=== PATIENT | male | born 1965 | race Two or more races ===

== ENCOUNTER 2019-02-03 05:50 | Inpatient (IN) | payer OTHER ==
[2019-02-03] VITALS (9 sets, daily range): BP systolic 110–149; BP diastolic 66–91
[~2019-02-03] VITALS: Ht 175.3 cm; Wt 74.8 kg
[2019-02-03] MEDS ORDERED: BENAZEPRIL HCL20 MG ORAL (06:19)
[2019-02-03] MEDS ORDERED: HYDROCODON-ACE1 EA15 ORAL (06:19)
--- NOTE | 2019-02-03 08:04 | NUR ---
LATEX FREE ENVIRONMENT MAINTAINED
--- NOTE | 2019-02-03 08:42 | Diagnostic Imaging Report ---
Indication: Cough Technique: One view of the chest Comparison: none Findings: Inspiration is suboptimal. There is some atelectasis at the left lung base. Lungs and pleural spaces are otherwise clear. The heart size is upper limits of normal. Impression: No acute process
--- NOTE | 2019-02-03 08:49 | Cardiology Progress Note ---
Assessment/Plan Assessment/Plan thoracic and lumbar strain lumbar radiculopathy htn remote history ot tobacco use ekg neg cbc ., cmp , coags ok urine ok cxr done pending full report to my review i did not see any sig abn may be atelectasis left await final interpretation no prior cardiac hs or dm no recent cardaic symptoms relatively low risk procedure no contraindication felt to be acceptable and low risk for perioperative cardiac morbidity [id number] Objective Last 24 Hour Vital Signs Date Time Temp Pulse Resp B/P (MAP) Pulse Ox O2 Delivery O2 Flow Rate FiO2 02/03/19 07:30 97.6 73 20 149/89 (109) 97 02/03/19 07:24 Room Air Chritsofer Rubio MD Feb 03, 2019 08:48
[2019-02-03] MEDS ORDERED: fentaNYL 100 mcg/2 mL IV ONE (09:48)
[2019-02-03] MEDS ORDERED: Midazolam 2mg/2ml Inj ONE (09:48)
[2019-02-03] MEDS ORDERED: Lidocaine 1% MPF 10mg/ml 5ml ONE (09:57)
[2019-02-03] MEDS ORDERED: Zemuron 50mg/5ml Inj IV ONE (10:07)
[2019-02-03] MEDS ORDERED: Morphine Sulfate 2mg/ml Inj(IV/IM USE ONLY) IM PRN (10:15)
[2019-02-03] MEDS ORDERED: Milk of Magnesia 30ml Ud ORAL PRN ×2 (10:15→13:30)
[2019-02-03] MEDS ORDERED: Acetaminophen (Non formulary) 100 ML IV ONE (10:15)
[2019-02-03] MEDS ORDERED: Vancomycin 1gm vial IVPB ONE (10:41)
[2019-02-03] MEDS ORDERED: Gelfoam Size TOPIC ONE (10:42)
[2019-02-03] MEDS ORDERED: Thrombin 5000 units TOPIC ONE ×2 (10:42→12:18)
[2019-02-03] MEDS ORDERED: Bacitracin 50000 Units Vial ONE (10:42)
[2019-02-03] MEDS ORDERED: Bupivacaine w/Epi 0.5% 30ml Vial INJ ONE (10:42)
--- NOTE | 2019-02-03 11:20 | Pre-Procedure Note/Attestation ---
Pre-Procedure Note/Attestation Complete Prior to Procedure Procedure Narrative: L34 L discectomy Indications for Procedure Pre-Operative Diagnosis: L34 HNP Attestation I attest that I discussed the nature of the procedure; its benefits; risks and complications; and alternatives (and the risks and benefits of such alternatives ), prior to the procedure, with the patient (or the patient's legal wire rope sales representative). I attest that, if there was a reasonable possibility of needing a blood transfusion, the patient (or the patient's legal wire rope sales representative) was given the [facility] standardized written summary, pursuant to the [place] Blood Safety Act ([place] Health and Safety Code # 1645, as amended). I attest that I re-evaluated the patient just prior to the surgery and that there has been no change in the patient's H&P, except as documented below: Aureliano Roy MD Feb 03, 2019 11:20
[2019-02-03] MEDS ORDERED: NS Irrig 1000ml ONE (12:03)
[2019-02-03] MEDS ORDERED: LR 1000ml ONE (12:03)
[2019-02-03] MEDS ORDERED: Sterile Water Irrig 1000ml IRRIG ONE (12:03)
[2019-02-03] MEDS ORDERED: NS Irrig 1000ml IRRIG ONE ×2 (12:03→12:48)
[2019-02-03] MEDS ORDERED: Propofol 1,000mg/ 100ml btl IV ONE (12:30)
--- NOTE | 2019-02-03 12:53 | Anethesia Preoperative Eval ---
Anesthesia Pre-op PMH/ROS General Date of Evaluation: Feb 03, 2019 Time of Evaluation: 11:40 Anesthesiologist: Marine ASA Score: ASA 2 Mallampati Score Class I : Soft palate, uvula, fauces, pillars visible Class II: Soft palate, uvula, fauces visible Class III: Soft palate, base of uvula visible Class IV: Only hard plate visible Mallampati Classification: Class II Surgeon: Manuela Diagnosis: Lumbar radculopathy Surgical Procedure: L3-L4 discectomy Anesthesia History: none Social History: smoking - h/o Family History: no anesthesia problems Allergies: Coded Allergies: Barley (Verified Allergy, Severe, ICTHING, HIVES, 02/03/19) "CANT BREATH" LATEX (Verified Allergy, Severe, 02/03/19) ITCHING ONION (Verified Allergy, Severe, ANAPHYLACTIC SHOCK, 02/03/19) LACTOSE (Verified Adverse Reaction, Severe, 02/03/19) BLOATING,DIARRHEA,ABD CRAMPS Patient NPO?: Yes NPO Date: Feb 02, 2019 NPO Time: 2330 Past Medical History Cardiovascular: Reports: HTN; Denies: CAD, PR, valve dz, arrhythmia, other Pulmonary: Denies: asthma, COPD, IRMA, other Gastrointestinal/Genitourinary: Reports: GERD; Denies: CRI, ESRD, other Neurologic/Psychiatric: Reports: other - chronic pain; Denies: dementia, CVA, depression/anxiety, TIA Endocrine: Reports: hypothyroidism; Denies: DM, steroids, other HEENT: Denies: cataract (L), cataract (R), glaucoma, TRIBAL (L), TRIBAL (R), other Hematology/Immune: Denies: anemia, DVT, bleeding disorder, other Musculoskeletal/Integumentary: Denies: OA, RA, DJD, DDD, edema, other PMH Narrative: as above PSxH Narrative: orchiopexy Anesthesia Pre-op Phys. Exam Physician Exam Last Vital Signs Date Time Temp Pulse Resp B/P (MAP) Pulse Ox O2 Delivery O2 Flow Rate FiO2 02/03/19 07:30 97.6 73 20 149/89 (109) 97 02/03/19 07:24 Room Air Constitutional: NAD Neurologic: CN 2-12 intact Cardiovascular: RRR, no M/R/G Respiratory: CTA Gastrointestinal: S/NT/ND Airway Exam Mallampati Score: Class II MO: full Neck: flexible ROM: full Teeth: intact Dentures: no upper, no lower Anesthesia Pre-op A/P Labs see chart Studies Pre-op Studies: EKG - NSR Risk Assessment & Plan Assessment: ASA 2 Plan: GA with ETT prone position neuromonitoring Status Change Before Surgery: No Pre-Antibiotics Drug: Ancef 2gr. Given Within 1 Hr of Incision: Yes Time Given: 12:28 Ben Hawthorne MD Feb 03, 2019 12:53
[2019-02-03] MEDS ORDERED: Sodium Chloride 10ml vial INJ ONE (12:54)
[2019-02-03] MEDS ORDERED: Glycopyrrolate 0.2mg/ml 1ml Vial ONE (12:54)
[2019-02-03] MEDS ORDERED: Metoprolol 5mg/5ml Inj ONE (12:54)
[2019-02-03] MEDS ORDERED: Ketorolac 30mg Inj ONE (12:54)
[2019-02-03] MEDS ORDERED: Morphine Sulfate 10mg/ml Inj ONE (12:54)
[2019-02-03] MEDS ORDERED: Metoclopramide 10mg/2ml Inj IVP PRN (13:30)
--- NOTE | 2019-02-03 13:32 | Brief Operative Note ---
Immediate Post Operative Note Operative Note Pre-op Diagnosis: L34 HNP Procedure: L34 L discectomy Post-op Diagnosis: same as pre-op Findings: consistent w/pre-op dx studies Surgeon: lan Gear Lapping Machine Operator: azar ortega Anesthesiologist: june Anesthesia: general Specimen: none Complications: none Condition: stable Fluids: 1L Estimated Blood Loss: minimal - 50 Drains: none Implant(s) used?: No Aureliano Roy MD Feb 03, 2019 13:32
--- NOTE | 2019-02-03 13:45 | Consultation ---
DATE OF CONSULTATION: 02/03/2019 CARDIOLOGY CONSULTATION CONSULTING PHYSICIAN: Christofer Rubio M.D. REFERRING PHYSICIAN: Aureliano Roy M.D. REASON FOR REFERRAL: Preoperative consultation. HISTORY OF PRESENT ILLNESS: This is a 53-year-old gentleman, who has had work-related injury, end of May,. At that time, he was referred to a chiropractor adjustment before, but apparently very painful, eventually physical therapy. Pain improved a bit but back, eventually he saw his primary care physician and was referred to a spine surgeon. An MRI was performed and that showed significant abnormalities according to the patient and the patient was referred back to worker's compensation insurance physician and eventually was referred for spine surgery and he will be undergoing that sinus surgery today. He is being seen preoperatively for evaluation. The patient has no cardiac history whatsoever, is not a diabetic. He is active to a certain degree although at times more, at times less depending on degree of pain. He is able to climb one flight of stairs very slowly having to hold on to because of back pain, but in November he was able to walk around and he did than he used to with his activities that he is capable of doing. He is not having any pain, pressure, tightness, heaviness in his chest. There is no PND. There is no orthopnea. He uses one pillow. There is no dizziness or lightheadedness on standing. PAST MEDICAL HISTORY: Positive for history of high blood pressure. He has some mild hyperlipidemia as well. No history of heart attack. No cancer, stroke, hepatitis, tuberculosis, asthma, emphysema. No ulcers. No kidney problems except for a "simple cyst." No liver problems. He does have multiple nodules in his thyroid, this biopsy was negative, anemia, arthritis, HIV, AIDS, blood clots, or bleeding disorders or any other major medical problems. PAST SURGICAL HISTORY: At the age of 10, he underwent surgery for undescended testicle. MEDICATIONS: Benazepril 20 mg daily. ALLERGIES: He is not allergic to any medications. SOCIAL HISTORY: He quit smoking 20 years ago. No alcohol. No drugs. REVIEW OF SYSTEMS: GASTROINTESTINAL: He has had problems with nausea that he blames on pain. He also has intermittent diarrhea related to lactose intolerance. Otherwise, no black or tarry stools. GENITOURINARY: He has multiple nocturic episodes. He has had frequency of urination and apparently he has had some workup and states that apparently was negative according to himself. CONSTITUTIONAL: Negative. NEUROLOGIC: No numbness or weakness in his legs worse on the left leg than the right leg. No other issues. PHYSICAL EXAMINATION: GENERAL: Shows to be a middle-aged gentleman. VITAL SIGNS: His blood pressure is 141/89 with heart rate of 72, respirations of 20, 97% saturation, and temperature 97.6. NECK: Supple. No jugular venous distention. No abdominojugular reflux noted. LUNGS: Clear to auscultation and percussion. CARDIAC: S1 is normal. S2 is normal. Regular rate and rhythm. There is no heaves, no lifts, no gallops, no rubs are noted. ABDOMEN: Soft. I am not able to palpate any of the internal . There is no masses that I can palpate. EXTREMITIES: There is no edema. He has excellent pulses in the radials and dorsalis pedis. LABORATORY AND DIAGNOSTIC DATA: Laboratory values and electrocardiogram showed normal sinus rhythm, normal QRS axis, no ST or T-wave abnormalities. A chest x-ray has just been performed, not yet read by the radiologist. No significant abnormalities were noted. His white count 6.4, hemoglobin 14.4, and platelet count of 339. Blood sugar was 99, sodium 142, potassium 4.5, chloride 98, bicarbonate 27, BUN of 13, creatinine 0.8. Urinalysis is fairly unremarkable. Nitrites negative. INR 1, PTT of 27. ASSESSMENT AND PLAN: 1. Thoracic spine strain. 2. Lumbar spine strain with radiculopathy. 3. History of hypertension. 4. Prior history of tobacco use disorder, quit 20 years earlier. PLAN: Dr. Roy, this patient was seen in cardiac consultation. The patient has no signs, symptoms of coronary syndrome. Recently no signs, symptoms of congestive heart failure. No abnormalities noted on the electrocardiogram. Laboratories are appeared to be satisfactory. The patient has been active, has been able to walk. He has not experienced any chest pain with the surgery, relatively low risk surgery, and is being contemplated at the present time. I see no contraindications for his proposed surgery is felt to be acceptable risk to undergo this lumbar spine surgery. Christofer Rubio M.D. DR: EUSEBIO JOB#: [id number] CC:
[2019-02-03] MEDS ORDERED: Meperidine 50mg/ml Inj(FOR RIGORS ONLY) IV PRN (14:00)
[2019-02-03] MEDS ORDERED: Ketorolac 30mg Inj IV PRN (14:00)
[2019-02-03] MEDS ORDERED: DiphenhydrAMINE 50mg/ml Inj IVP PRN (14:00)
--- NOTE | 2019-02-03 14:06 | Immediate Post-Op Evaluation ---
Immediate Post-Op Evalulation Immediate Post-Op Evalulation Procedure: L3-L4 discectomy with decompression Date of Evaluation: Feb 03, 2019 Time of Evaluation: 14:05 IV Fluids: 1200 Blood Products: none Estimated Blood Loss: 50 Urinary Output: none Blood Pressure Systolic: 116 Blood Pressure Diastolic: 57 Pulse Rate: 82 Respiratory Rate: 20 O2 Sat by Pulse Oximetry: 99 Temperature (Fahrenheit): 97.4 Pain Score (1-10): 2 Nausea: No Vomiting: No Complications none Patient Status: reacts, patent, extubated, none Hydration Status: adequate Ben Hawthorne MD Feb 03, 2019 14:06
--- NOTE | 2019-02-03 15:50 | NUR ---
NURSE NOTES: Pt received from surgery awake scratching his eyes. ER nurse informed pt that eye ointment was placed in eyes due to position of surgery. Pt expressed his allergies. Nuero check rendered , able to follow commands , able to place finger onto nose, and follow writers finger without moving head. Bandage is clean and intact . Ice pack on back. Has sensation to lower extremities , complete resistance. 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 Breathing by nasal canula 3 liters Made aware of diet order, call light is in reach.
[2019-02-03] MEDS ORDERED: Chloraseptic Spray 20mL Bottle ORAL PRN (16:00)
--- NOTE | 2019-02-03 16:00 | NUR ---
NURSE NOTES: Pt assessed by play writer and charge nurse yet told no one is listening to him. Pt made aware of possible sensations related to surgery and sensations that would alert us to call surgeon. Verbalized understanding
[2019-02-03] MEDS: HYDROmorphone 1mg/ml Carpuject SUBQ PRN ×2 (16:01→20:47)
--- NOTE | 2019-02-03 16:26 | Diagnostic Imaging Report ---
INDICATION: Pain, intraoperative TECHNIQUE: Intraoperative imaging Fluoroscopy time: 3.5 seconds Total dose: 0.65201 mGym2 Total number of images: One COMPARISON: None FINDINGS: Intraoperative imaging demonstrates a surgical tool projected posterior to the L4 vertebral body. IMPRESSION: Intraoperative imaging, as described
[2019-02-03] MEDS: D5 1/2NS 1,000 ML IV SCH (16:42)
--- NOTE | 2019-02-03 17:00 | NUR ---
NURSE NOTES: Pt stated he was in pain , pt changed his mind medication cancelled without removing Morphine , Dilaudid given . Charge Nurse aware
[2019-02-03] MEDS: Docusate 100mg cap ORAL SCH ×2 (17:16→17:24)
[2019-02-03] MEDS: Dronabinol 2.5mg Cap ORAL SCH (17:17)
--- NOTE | 2019-02-03 18:15 | Consultation ---
DATE OF CONSULTATION: 02/03/2019 CONSULTING PHYSICIAN: Dionisio West M.D. REFERRING PHYSICIAN: Aureliano Roy M.D. REASON FOR CONSULTATION: Acute pain consultation. HISTORY OF PRESENT ILLNESS: Dear Dr. Aureliano Roy, Thank you kindly for consulting me to evaluate and render an opinion as to how to proceed in the management of the patient's acute postoperative lumbar spine pain after his decompressive lumbar spine surgery today. The patient is a very pleasant 53-year-old gentleman, who injured his lumbar spine in a work-related injury. He has been requiring Bradley and THC for his worsening pain control and left greater than right lower extremity radicular symptoms preoperatively. I saw the patient at the bedside. I performed a detailed history and physical examination. I devised the following analgesic plan to help with his postoperative pain control on your request. I spent over 75 minutes in consultation with an additional 30 minutes in medical record review. Multiple records were reviewed including utilization review and surgical authorization by [employer] January 30, 2019 authorizing lumbar spine surgery and hospitalization as certified. Further record review include preoperative history and physical by Dr. Rubio, February 03, 2019 along with diagnostic testing and laboratory studies, lumbar spine MRI and 12 lead EKG. Further record review included multiple reports from today's date of surgery at [facility], February 03, 2019 including consent for surgical treatment, consent for anesthesia, consent for blood products, medication administration record, medication reconciliation performed records in order form, PACU record, PACU orders, anesthesia record, pre and post anesthesia evaluation record, postoperative spine surgery orders and postoperative surgery report by Dr. Roy, guidelines for prophylactic antibiotics, guidelines for DVT prophylaxis, initial nursing assessment, 24-hour medical and surgical solution, surgical invasive procedure check list. for cognitive disability. PAST MEDICAL HISTORY: 1. Acute postoperative lumbar spine pain, status post decompressive lumbar spine surgery by Dr. Aureliano Roy, February 2019. 2. Work-related injury. 3. Hypertension. 4. Chronic lumbar spine pain. PAST SURGICAL HISTORY: Last surgery was over 40 years ago. SOCIAL HISTORY: The patient lives at home with his and daughter. He quit tobacco many years ago. Over the past couple of months, he has been vaping on THC to help with his pain control. He denies alcohol usage. MEDICATIONS: At home, Bradley 10/325 mg b.i.d. p.r.n., NSAIDs, and benazepril. ALLERGIES: Multiple food allergies including onions, lactose, and barley. The patient states he has latex allergy. PAST SURGICAL HISTORY: At age 10, childhood surgery. REVIEW OF SYSTEMS: Per attending physician and Dr. Rubio. FAMILY HISTORY: Noncontributory. PHYSICAL EXAMINATION: VITAL SIGNS: Age 53, height 175 cm, weight 76 kg, body mass index 25. Vital signs, afebrile, pulse 73, respirations 20, blood pressure 149/89, pulse oximetry 97% on room air. HEENT: Normocephalic and atraumatic. CHEST: Clear to auscultation. HEART: Regular rhythm. ABDOMEN: Soft. Positive bowel sounds. NEUROLOGIC: Detailed lumbar spine and neurologic exam per Dr. Roy. GENITOURINARY: Deferred to Dr. Rubio. LABORATORY AND DIAGNOSTIC DATA: Laboratory studies from January 31, 2019 shows white count 6, hematocrit 43, platelets 334. Glucose 99, BUN 13, creatinine 0.8, sodium 142, potassium 4.5, chloride 98, bicarb 27, calcium 9.8. Total protein 6.8, albumin 4.3. Total bilirubin 0.5. Alkaline phosphatase 70, AST 16, ALT 16. Urinalysis negative. INR 1.0, PTT 27. A 12-lead EKG shows normal sinus rhythm, ventricular rate 76. No evidence for acute cardiac ischemia. MRI lumbar spine dated October 10, 2018; impression L1-L2, L2-L3 with 2 mm disc bulges, L3-L4 with a 2 mm circumferential disc bulge, L4-L5 with a 6 mm right and 8 mm left bilateral neural foraminal recess disc bulges. IMPRESSION: 1. Acute postoperative lumbar spine pain, status post decompressive lumbar spine surgery by Dr. Aureliano Roy, February 2019. 2. Work-related injury. 3. Hypertension. 4. Chronic lumbar spine pain. TREATMENT RECOMMENDATIONS: After taking a detailed medication history from the patient, I decided on the following analgesic plan. He does admit to vaping THC over the past several months. He states that he uses the vaping as a catch-up analgesic while between his doses of Bradley 10/325, which he takes approximately twice per day. I will increase the frequency of Bradley available, start him with one tablet of 10/325 Bradley every three hours p.r.n. for mild pain. I have added a breakthrough dose of morphine 4 mg intramuscular every 3 hours for moderate pain. I have added a breakthrough dose of Dilaudid 1 mg subcutaneously every 3 hours p.r.n. for severe breakthrough pain. I will place him on q.12 hours dosing of Marinol 2.5 mg for baseline analgesia. In case of any headache complaints, I have ordered Fioricet one tablet orally every 8 hours p.r.n. I have asked nursing to place Chloraseptic spray bottle at the bedside in case of any sore throat complaints postoperatively. Dr. Rubio will manage the patient's hypertensive issues. I have ordered p.r.n. dose of clonidine 0.1 mg orally every 8 hours in case of systolic blood pressure greater than [address] the patient on Pepcid 20 mg b.i.d. for empiric GI ulcer prophylaxis. I have also ordered p.r.n. dose of Mylanta 30 mL q.6 hours in case of any GERD symptom exacerbation. I have ordered Zofran 4 mg intravenously every 4 hours p.r.n. for nausea and vomiting. I have ordered Benadryl 5 mg q. 6 hours in case of itching complaints. I will place the patient on Colace 100 mg b.i.d. to help with bowel irregularity. I have ordered p.r.n. dose of milk of magnesia as a rescue laxative. I would certainly order an incentive spirometer to encourage good pulmonary toilet. This patient with distant tobacco usage. I will defer DVT prophylaxis to the surgeon. I have left a prescription for 60 tablets of Bradley 10/325 for outpatient usage. Dionisio West M.D. DR: ADAIR JOB#: [id number] CC:
--- NOTE | 2019-02-03 18:16 | NUR ---
CASE MANAGEMENT:REVIEW 53 YR OLD MALE HERE FOR ELECTIVE SURGERY SI: L34 HNP 97.6 73 20 149/89 97% ON RA IS: TO SURGERY FOR L34 DISCECTOMY : TO MED/SURG
--- NOTE | 2019-02-03 19:30 | NUR ---
HAND-OFF: Report given to Jose Angel Cullen made aware that pt has not urinated since arrival .
[2019-02-03] MEDS: HYDROcodone/Acetamin 10/325 tab ORAL PRN (19:56)
[2019-02-03] MEDS: ceFAZolin sod 1 GM in D5W 55 ML IV SCH (19:56)
--- NOTE | 2019-02-03 22:00 | NUR ---
NURSE NOTES: Patient in bed awake and oriented. VSS. No SOB noted. PRN pain medication given for 8/10 surgical pain. Dressing is clean and dry. ambulated in the bathroom. Patient voided x2. Needs attended. Family at bedside. Call light within reach. In stable condition.
--- NOTE | 2019-02-03 22:45 | Operative Note - Dictated ---
DATE OF OPERATION: 02/03/2019 SURGEON: Aureliano Roy MD. APPLE THINNER: LIDIA Guthrie ANESTHESIOLOGIST: Ben Hawthorne M.D. ANESTHESIA TYPE: General endotracheal anesthesia. PREOPERATIVE DIAGNOSIS: L3-L4 left-sided disk herniation with radiculopathy. POSTOPERATIVE DIAGNOSIS: L3-L4 left-sided disk herniation with radiculopathy. PROCEDURE: 1. Left-sided L3-L4 diskectomy. 2. Partial lateral facetectomy, left side, L3-L4. 3. Use of fluoroscopy. 4. Use of operating microscope. 5. Neurodiagnostic monitoring. ESTIMATED BLOOD LOSS: 50 mL. COMPLICATIONS: None. FLUIDS: 1 L. INDICATIONS: The patient is a very pleasant gentleman who sustained a disk herniation for lateral extraforaminal left side, L3-L4. Conservative care failed. He has active radiculopathy in the left lower extremity. Surgical intervention was recommended. He elected to proceed. The patient was explained in detail risks, benefits of surgery to include, but not be limited to those of bleeding, infection, damage to nerves, vessels, tendons, anesthetic risk, allergic reaction, possible risk of reherniation, and need for additional surgery such as redo diskectomy and fusion. The patient understood, wished to proceed. OPERATIVE PROCEDURE IN DETAIL: The patient was taken to the operating room. After general endotracheal anesthesia was induced, he was turned prone onto a Steve frame. The back was prepped and draped in the usual sterile fashion. The fluoroscope was brought in place and the L3-4 level was marked out. A lateral approach to the disk was chosen through a Jackeline approach. The skin was infiltrated with lidocaine and Marcaine with epinephrine. Incision was sharply carried down through the subcutaneous, fascia was incised. The interval between the longissimus and multifidus muscles were bluntly dissected and obliquely taken down to the transverse processes. Fluoroscope was brought in place and the L3-L4 level was once again reconfirmed. At this point, the anterior transverse ligament was carefully elevated off of the transverse process and the lateral portion of the facet joint. Lateral facet capsule was identified. It was drilled out with a high-speed drill and Kerrison punch was used to remove the lateral edge of the facet to access the disk extrusion. The traversing nerve root was gently retracted laterally. The disk extrusion was identified. The disk was incised with a scalpel and using the pituitary, multiple passes were taken in removing the disk fragments and loose fragments within the disk space itself. An empty disk phenomenon was encountered. Copious irrigation was performed intradiscally removing additional loose disk fragments. The neural foramen was then probed and noted to be patent. Decision was made to close. FloSeal was applied. The dorsal fascia was repaired in the layered fashion using #1 Vicryl in a [id number] pattern and subcutaneous closure using 2-0 Vicryl. Dermabond was applied. Telfa and Tegaderm was applied. The patient was then turned onto his back, awakened, extubated, and transferred to recovery room in stable condition. Sponge and needle counts were correct. Neurodiagnostic monitoring remained stable throughout the operation. [facility] Hiram Roy DR: SANDRINE JOB#: [id number] CC: SUMIT
[2019-02-04] VITALS (7 sets, daily range): BP systolic 132–159; BP diastolic 72–90
[2019-02-04] MEDS: D5 1/2NS 1,000 ML IV SCH ×4 (02:00→22:00)
[2019-02-04] MEDS: ceFAZolin sod 1 GM in D5W 55 ML IV SCH ×2 (04:14→11:29)
[2019-02-04] MEDS: HYDROmorphone 1mg/ml Carpuject SUBQ PRN ×4 (04:15→15:41)
[2019-02-04] MEDS: Dronabinol 2.5mg Cap ORAL SCH ×2 (05:27→17:58)
--- NOTE | 2019-02-04 07:30 | NUR ---
NURSE NOTES: AWAKE/ALERT.PAIN SCALE 8/10. MEDICATED WITH DILAUDID 1MG SUBQ ORDERED. BACK DRESSING DRY AND INTACT. NO C/O NUMBNESS/TINGLING BLE . IN NO DISTRESS.
--- NOTE | 2019-02-04 07:40 | 48 Hour Post Anesthesia Eval ---
Post Anesthesia Evaluation Procedure: L3-L4 discectomy with decompression Date of Evaluation: Feb 04, 2019 Time of Evaluation: 07:39 Blood Pressure Systolic: 116 0: 52 Pulse Rate: 68 Respiratory Rate: 20 Temperature (Fahrenheit): 97.6 O2 Sat by Pulse Oximetry: 98 Airway: patent Nausea: No Vomiting: No Pain Intensity: 2 Hydration Status: adequate Cardiopulmonary Status: stable Mental Status/LOC: patient returned to baseline Follow-up Care/Observations: n/a Post-Anesthesia Complications: none Follow-up care needed: ready to discharge Ben Hawthorne MD Feb 04, 2019 07:40
[2019-02-04] MEDS: Benazepril 10mg tab ORAL SCH (08:37)
[2019-02-04] MEDS: Docusate 100mg cap ORAL SCH ×3 (08:37→17:58)
--- NOTE | 2019-02-04 08:39 | NUR ---
NURSE NOTES: mallory entered twice in emar.
--- NOTE | 2019-02-04 09:27 | Orthopedic Spine Progress Note ---
Ortho Spine - Progress Note Subjective Symptoms: c/o post-op back pain, improved - as compared to pre-op Objective Vital Signs: Last 24 Hour Vital Signs Date Time Temp Pulse Resp B/P (MAP) Pulse Ox O2 Delivery O2 Flow Rate FiO2 02/04/19 08:37 139/72 02/04/19 08:22 97.6 02/04/19 08:00 97.7 78 20 139/72 (94) 96 02/04/19 07:40 68 20 98 02/03/19 21:00 Room Air 02/03/19 15:05 98.4 65 15 113/69 100 Nasal Cannula 3 02/03/19 14:56 98.4 02/03/19 14:50 61 15 123/68 100 Nasal Cannula 3 02/03/19 14:36 63 16 117/69 100 Nasal Cannula 3 02/03/19 14:26 70 15 132/70 100 Nasal Cannula 3 02/03/19 14:20 70 13 117/76 100 Nasal Cannula 3 02/03/19 14:11 73 16 121/66 100 Simple Mask 6 02/03/19 14:06 73 18 110/73 100 Simple Mask 6 02/03/19 14:06 82 20 99 02/03/19 14:01 98.0 85 20 128/91 100 Simple Mask 6 I&O: Intake and Output 02/03/19 02/04/19 18:59 06:59 Intake Total 1500 ml 1160 ml Output Total 50 ml Balance 1450 ml 1160 ml Intake Oral 360 ml IV Total 1500 ml 800 ml Output Estimated Blood Loss 50 ml # Voids 2 Wound: clean, dry, intact Drains: none Neuro Status: unchanged from pre-op Assessment Procedure Performed: L34 L discectomy Plan Plan: PT, pain management, discharge plan Aureliano Roy MD Feb 04, 2019 09:27
[2019-02-04] MEDS ORDERED: LORazepam Inj 2mg/ml 1ml IV SCH (12:43)
--- NOTE | 2019-02-04 15:07 | NUR ---
P.T Note: P.T evaluation completed and treatment initiated per spinal protocol. . Skilled P.T service is warranted to ensure safety and compliance with spinal/movement precautions in functional mobilities/activities. Please refer to P.T evaluation for current functional status.
--- NOTE | 2019-02-04 18:57 | NUR ---
NURSE NOTES: RESTING IN BED IN NO ACUTE DISTRESS.
--- NOTE | 2019-02-04 19:00 | Cardiology Progress Note ---
Assessment/Plan Assessment/Plan 1. Thoracic spine strain. 2. Lumbar spine strain with radiculopathy. 3. History of hypertension. 4. Prior history of tobacco use disorder, quit 20 years earlier. 5. Nsuaea likley due to pain meds anti emetic check orthstatic vitals bp seems fien is afebrile pain seem controlled ambulating had mom for bm Subjective Cardiovascular: Denies: chest pain, lightheadedness, palpitations Respiratory: Denies: shortness of breath Gastrointestinal/Abdominal: Reports: constipated, nausea Genitourinary: Denies: burning Objective Last 24 Hour Vital Signs Date Time Temp Pulse Resp B/P (MAP) Pulse Ox O2 Delivery O2 Flow Rate FiO2 02/04/19 17:00 82 132/72 (92) 02/04/19 16:11 98.4 02/04/19 16:00 98.4 98 20 134/79 (97) 96 02/04/19 12:00 97.5 89 18 136/82 (100) 97 02/04/19 09:00 Room Air 02/04/19 08:37 139/72 02/04/19 08:00 97.7 78 20 139/72 (94) 96 02/04/19 07:40 68 20 98 02/03/19 21:00 Room Air General Appearance: no apparent distress, alert Neck: supple Cardiovascular: normal rate Respiratory/Chest: lungs clear Abdomen: normal bowel sounds, non tender, soft Extremities: no swelling, other - pneumoatic stocking in palce Intake and Output 02/03/19 02/04/19 19:00 07:00 Intake Total 1500 ml 1160 ml Output Total 50 ml Balance 1450 ml 1160 ml Intake Oral 360 ml IV Total 1500 ml 800 ml Output Estimated Blood Loss 50 ml # Voids 2 Christofer Rubio MD Feb 04, 2019 19:00
--- NOTE | 2019-02-04 19:46 | NUR ---
HAND-OFF: Report given to Dawson BRIONES RN.
--- NOTE | 2019-02-04 19:50 | NUR ---
NURSE NOTES: Received report from KELSIE Denton. Rounds done. Back dressing intact and dry, IV site intact and patent. No distress noted, family at bedside. Bed in low position, locked, side rails up x2, call light within reach.
[2019-02-04] MEDS: HYDROcodone/Acetamin 10/325 tab ORAL PRN (20:27)
--- NOTE | 2019-02-04 20:30 | NUR ---
NURSE NOTES: Orthostatics per MD request as follows: supine BP: 159/90 P:89 sitting BP: 156/90 P:89 standing BP: 157/87 P: 97 Will call MD to report per his request.
--- NOTE | 2019-02-04 21:30 | Progress Note ---
DATE: 02/04/2019 ACUTE PAIN MANAGEMENT PHYSICIAN PROGRESS NOTE MEDICATIONS: Medication administration record reviewed. Medications include IV fluids, Colace, Pepcid, Lotensin, Marinol 2.5 mg q.12 hours, Fioricet, Benadryl, Catapres, Chloraseptic spray, [place], Dilaudid, morphine, Mylanta, Zofran, Tylenol, milk of magnesia, Reglan, and Restoril. LABORATORY STUDIES: No interval laboratory studies. OBJECTIVE: Vital signs within normal limits. Afebrile, pulse 78, respirations 20, blood pressure 139/72, and oxygen saturation 96% on room air. I saw the patient at the bedside with his . I discussed the case with the nurse RN, Corrie and hospital pharmacist, Calista. Earlier today, the surgeon, Dr. Aureliano Roy evaluated the patient. The patient does have considerable incisional pain; however, his leg pain seems to have improved postoperatively. The patient has been using primarily the subcutaneous Dilaudid for his pain control. We did encourage the oral [place]. However, the patient has been deferring parenteral narcotics. I do have the patient dosed on q.2 hour dosing of Marinol. I think this has been quite helpful. The patient does admit to vaping of THC recently. The patient's is present at the bedside. Unfortunately, the patient seems to be more anxious and uncomfortable when the is around. When she is not present, he seems to be doing quite well and advancing with his rehabilitation. The patient is complaining of nausea presently. He has been dosed with Zofran, which did not seem to be too affective. With my suggestion that the patient may be anxious with his present, I have asked the nurse to dose him with a small intravenous Ativan 0.5 mg for anxiolysis. We will see if this helps with the nausea. The patient will continue with IV fluids. A raised toilet seat has been ordered for home usage. The patient already has a front wheel walker at home. I did leave a prescription for 60 tablets of [place] for outpatient usage. I will defer discharge plan to the surgeon, Dr. Roy. Dionisio West M.D. DR: LENIN JOB#: [id number] CC:
[2019-02-05] VITALS: BP 140/64
[2019-02-05] MEDS: D5 1/2NS 1,000 ML IV SCH ×2 (03:00→08:00)
[2019-02-05 04:00] VITALS: BP 131/74
[2019-02-05] MEDS: HYDROcodone/Acetamin 10/325 tab ORAL PRN ×2 (05:21→13:00)
[2019-02-05 06:50] LABS: BASOPHILS % (AUTO) 0.8 % (0.0-2.0); EOSINOPHILS % (AUTO) 2.8 % (0.0-3.0); HEMATOCRIT 40.1 % (42.0-52.0); HEMOGLOBIN 13.5 G/DL (14.2-18.0); LYMPHOCYTES % (AUTO) 22.8 % (20.0-45.0); MEAN CORPUSCULAR VOLUME 93 FL (80-99); MONOCYTES % (AUTO) 9.5 % (1.0-10.0); NEUTROPHILS % (AUTO) 64.1 % (45.0-75.0); PLATELET COUNT 351 K/UL (150-450); RED BLOOD COUNT 4.33 M/UL (4.70-6.10); RED CELL DISTRIBUTION WIDTH 11.3 % (11.6-14.8); WHITE BLOOD COUNT 9.3 K/UL (4.8-10.8)
[2019-02-05] MEDS: Dronabinol 2.5mg Cap ORAL SCH (06:57)
--- NOTE | 2019-02-05 07:20 | NUR ---
HAND-OFF: Report given to KELSIE Denton. Condition stable.
--- NOTE | 2019-02-05 07:28 | NUR ---
NURSE NOTES: awake/alert. pain scale 6/10. back dressing dry and intact. in no distress.
[2019-02-05 07:52] LABS: ANION GAP 7 mmol/L (5-15); BLOOD UREA NITROGEN 8 mg/dL (7-18); CARBON DIOXIDE 30 MMOL/L (21-32); CHLORIDE 108 MMOL/L (98-107); CREATININE 0.9 MG/DL (0.55-1.30); POTASSIUM 3.9 MMOL/L (3.5-5.1); SODIUM 145 MMOL/L (136-145)
[2019-02-05 08:00] VITALS: BP 131/75
[2019-02-05] MEDS: Benazepril 10mg tab ORAL SCH (08:34)
--- NOTE | 2019-02-05 08:51 | Orthopedic Spine Progress Note ---
Ortho Spine - Progress Note Subjective Symptoms: c/o post-op back pain, improved - as compared to pre-op Objective Vital Signs: Last 24 Hour Vital Signs Date Time Temp Pulse Resp B/P (MAP) Pulse Ox O2 Delivery O2 Flow Rate FiO2 02/05/19 08:34 131/75 02/05/19 08:09 Room Air 02/05/19 08:00 97.8 78 20 131/75 (93) 94 02/05/19 04:00 98.2 80 18 131/74 (93) 96 02/05/19 00:00 98.5 89 16 140/64 (89) 94 02/04/19 21:00 Room Air 02/04/19 20:37 97 157/87 (110) 02/04/19 20:33 89 156/90 (112) 02/04/19 20:30 98.3 89 20 159/90 (113) 96 02/04/19 17:00 82 132/72 (92) 02/04/19 16:11 98.4 02/04/19 16:00 98.4 98 20 134/79 (97) 96 02/04/19 12:00 97.5 89 18 136/82 (100) 97 02/04/19 09:00 Room Air I&O: Intake and Output 02/04/19 02/05/19 18:59 06:59 Intake Total 605 ml 1100 ml Balance 605 ml 1100 ml Intake Oral 300 ml IV Total 305 ml 1100 ml # Voids 2 Wound: clean Drains: none Neuro Status: abnormal - mild improvement of quads strength L side Assessment Procedure Performed: L34 L discectomy Plan Plan: PT, pain management, discharge plan Aureliano Roy MD Feb 05, 2019 08:51
[2019-02-05] MEDS: Docusate 100mg cap ORAL SCH (09:00)
[2019-02-05] MEDS ORDERED: NORCO 10-325 T1 EACH ORAL (10:32)
[2019-02-05] MEDS ORDERED: TransDerm Scop 1.5mg/72HR Patch TDERMAL SCH (11:00)
[2019-02-05 12:00] VITALS: BP 155/79
[2019-02-05] MEDS ORDERED: Loperamide 2mg cap ORAL SCH (13:10)
--- NOTE | 2019-02-05 15:55 | NUR ---
NURSE NOTES: DISCHARGED HOME [facility]PD BY DAUGHTER (STAR) IN STABLE CONDITION. DC INSTRUCTIONS AND RX GIVEN.
[2019-02-05] MEDS ORDERED: D5 1/2NS 1000ml IV ONE (16:04)
--- NOTE | 2019-02-06 11:15 | Discharge Summary ---
Discharge Summary Hospital Course Date of Admission Feb 03, 2019 at 06:08 Date of Discharge Feb 05, 2019 at 16:05 Admitting Diagnosis Lumbar disk herniation with left side radiculopathy. Reason for Hospitalization: elective surgery HPI Prasanna Trimble is a 53 year old male who was admitted on Feb 03, 2019 at 06:08 for lumbar disc herniation with left sided radiculopathy . Conservative care failed. Patient was admitted for elective surgery. Consultations Dr Rubio - IM/cardio Dr West - pain specialist Procedures s/p 02/03/[address] Roy 1. Left-sided L3-L4 diskectomy. 2. Partial lateral facetectomy, left side, L3-L4. 3. Use of fluoroscopy. 4. Use of operating microscope. 5. Neurodiagnostic monitoring. Hospital Course status post surgery course of recovery uneventful initially IV fluids s/p perioperative antibiotics neurovascular status closely monitored, stable some improvement of quads strength left side surgical incision clean , dry, and intact with dressing pain management addressed pain specialist followed; pain controlled remained hemodynamically stable ambulated with PT fall precautions maintained; safe for ambulation DVT prophylaxis provided use of incentive spirometry was encouraged while in the bed tolerated diet , IV fluids discontinued GI prophylaxis provided antiemetics were on board as needed blood pressure was managed with benazepril voided freely bowel regimen instituted patient was stable for discharge discharge instructions provided follow up with surgeon in clinic as outpatient FINAL DIAGNOSES T spine strain Lumbar spine strain with radiculopathy L3-L4 left-sided disk herniation with radiculopathy s/p L3 L4 diskectomy Work related injury Hypertension History of tobacco use(quit 20 yrs ago) Discharge Medications Continued Medications: Benazepril Hcl* (Benazepril Hcl*) 20 Mg Tablet 20 MG ORAL DAILY, TAB (This prescription has been renewed) Hydrocodone Bit/Acetaminophen 10-325* ([place] 10-325*) 1 Each Tablet 1 TAB ORAL QID PRN for For Pain, #60 TAB 0 Refills (This prescription has been renewed) PRN PAIN Discontinued Medications: Hydrocodone/Acetaminophen 5-325* (Hydrocodone/Acetaminophen 5-325*) 1 Each Tablet 1 TAB ORAL Q6H PRN for For Pain, #10 TAB 0 Refills Discharge Condition Upon Discharge: stable Discharge Disposition Patient was discharged home Discharge Instructions Discharge Instructions Special Instructions I have been assigned to complete a D/C Summary on this account. I was not involved in the patient management Rivera ,Anna Marie MANAGER [employer] Feb 06, 2019 11:15
--- NOTE | 2019-02-08 15:34 | Cardiology Report ---
APPROVED REPORT EKG Measurement Heart [id number] Normal sinus rhythm Normal ECG
== END 2019-02-05 16:05 | disposition home or self-care (01) | DRG 520 ==
LOC: SDSOVERFLO 06:08 → 3E 15:15
PROC: 0SB20ZZ Excision of Lumbar Vertebral Disc, Open Approach (ICD-10-PCS; principal; 2019-02-03 12:30)
DX: M51.16 Intervertebral disc disorders with radiculopathy, lumbar region (principal); I10 Essential (primary) hypertension; Z87.891 Personal history of nicotine dependence; S29.012A Strain of muscle and tendon of back wall of thorax, initial encounter; X58.XXXA Exposure to other specified factors, initial encounter; G89.18 Other acute postprocedural pain
CPT/HCPCS: 36415; 71045; 72020; 76000; 80048; 85025; 86850; 86900; 86901; 87081; 93005; 94003; 94150; J2250; J2405